=== PATIENT | male | born 1995 ===

== ENCOUNTER 2020-12-06 14:44 | Emergency (ER) | payer OTHER, SELFPAY ==
[2020-12-06 15:12] VITALS: BP 138/53; PULSE 112; RESP 16; TEMP 38.1; O2SAT 97; BMI 29.5
--- NOTE | 2020-12-06 15:17 | DI.RAD.S_ITS ---
PROCEDURE: XR CHEST 2V INDICATIONS: crackles in chest TECHNIQUE: 2 views of the chest were acquired. COMPARISON: None. FINDINGS: Surgical changes and devices: None. Lungs and pleura: Patchy bibasilar infiltrates. No pleural effusions or pneumothorax. Mediastinum: Mediastinal contours are normal. Heart size is normal. Bones and chest wall: No suspicious bony abnormalities. Soft tissues appear unremarkable. IMPRESSION: Patchy bibasilar pneumonia. Dictated by: Navid Bethea M.D. on 12/06/2020 at 15:47 Approved by: Navid Bethea M.D. on 12/06/2020 at 15:48
[2020-12-06 17:33] VITALS: BP 124/72; PULSE 102; RESP 28; TEMP 38.2; O2SAT 96
[2020-12-06] MEDS: ONDANSETRON 4 MG/2 ML INJ IV (17:48)
[2020-12-06] MEDS: KETOROLAC 30 MG/ML VIAL 15 MG IV (17:48)
[2020-12-06] MEDS: SODIUM CHLORIDE 0.9% 1,000 ML 1000 ML IV (17:48)
[2020-12-06 17:50] LABS: Add Manual Diff / Slide Review NO; Basophils Absolute Auto 0 /uL (0-100); Basophils Percent Auto 0.2 % (0-2); Eosinophils Absolute Auto 0 /uL (0-450); Hematocrit 47.3 % (41-53); Hemoglobin 16.4 g/dL (13.5-17.5); Lymphocytes Absolute Auto 500 /uL (1100-4500); Lymphocytes Percent Auto 14.4 % (25-40); Mean Corpuscular HGB Conc 34.7 % (30-36); Mean Corpuscular Hemoglobin 29.2 PG (26-34); Mean Corpuscular Volume 84.2 fL (80-100); Monocytes Absolute Auto 200 /uL (0-900); Neutrophils Absolute Auto 3000 /uL (1500-7000); Neutrophils Percent Auto 79.4 % (50-75); Platelet Count 122 X10^3/uL (150-400); Red Blood Cell Count 5.61 X10^6/uL (4.5-5.9); Red Cell Distribution Width 12.7 % (11.6-14.8); White Blood Cell Count 3.7 X10^3/uL (4.5-11.0)
[2020-12-06 18:00] LABS: Alanine Aminotransferase 45 IU/L (<50); Albumin 4.8 g/dL (3.5-5.0); Albumin Globulin Ratio 1.5 (1.0-2.8); Alkaline Phosphatase 61 U/L (38-126); Aspartate Aminotransferase 42 IU/L (17-59); BUN Creatinine Ratio 13.7 (6-22); Bilirubin Total 0.5 mg/dL (0.2-1.3); Blood Urea Nitrogen 14 mg/dL (9-20); C-Reactive Protein Quant 1.7 mg/dL (<1.0); Calcium 9.3 mg/dL (8.4-10.2); Carbon Dioxide 24 mmol/L (22-32); Chloride 105 mmol/L (98-107); Creatine Kinase 91 U/L (55-170); Estimated Glomerular Filt Rate > 60.0 mL/min (>60); Globulin 3.2 g/dL (1.7-4.1); Glucose 102 mg/dL (70-100); HEMOLYSIS < 15 (0-50); Lactate Dehydrogenase 618 U/L (313-618); Potassium 3.9 mmol/L (3.4-5.1); Sodium 140 mmol/L (137-145)
[2020-12-06 18:01] LABS: COVID19 -Nasal RAPID POSITIVE (Negative)
[2020-12-06 18:09] LABS: NT-proBNP (BNP-Adult 18+) 23 pg/mL (<125); Troponin I < 0.012 ng/mL (0.01-0.034)
[2020-12-06 18:14] LABS: Procalcitonin 0.24 ng/mL (<0.5)
[2020-12-06 18:18] VITALS: PULSE 94; RESP 32; O2SAT 92
[2020-12-06 18:30] VITALS: BP 111/58; PULSE 89; RESP 28; O2SAT 93
[2020-12-06 18:36] LABS: Adenovirus Not Detected (Not Detect); B. parapertussis Not Detected (Not Detecte); Bordetella pertussis Not Detected (Not Detecte); Chlamydophila pneumoniae Not Detected (Not Detect); Coronavirus 229E Not Detected (Not Detect); Coronavirus HKU1 Not Detected (Not Detect); Coronavirus NL 63 Not Detected (Not Detect); Coronavirus OC43 Not Detected (Not Detect); Human Metapneumovirus Not Detected (Not Detect); Human Rhinovirus/Enterovirus Not Detected (Not Detect); Influenza A Not Detected (Not Detect); Influenza B Not Detected (Not Detect); Mycoplasma pneumoniae Not Detected (Not Detect); Parainfluenza Virus 1 Not Detected (Not Detect); Parainfluenza Virus 2 Not Detected (Not Detect); Parainfluenza Virus 3 Not Detected (Not Detect); Parainfluenza Virus 4 Not Detected (Not Detect); Respiratory Syncytial Virus Not Detected (Not Detect); SARS- CoV-2 Detected (Not Detecte)
--- NOTE | 2020-12-06 18:51 | ED_ITS ---
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 He states that at the end of last week he started to not feel well but was not until the past 24 hours when his symptoms worsened. He has not been vaccinated against COVID-19. Related Data Allergies Allergy/AdvReac Type Severity Reaction Status Date / Time No Known Drug Allergies Allergy Verified 12/06/20 15:12 Review of Systems Constitutional Constitutional: Reports fatigue, Reports fever(s) and Reports malaise Eyes Eyes: Reports system reviewed and no additional complaints, except as documented Cardiovascular Cardiovascular: Reports system reviewed and no additional complaints, except as documented and Reports dyspnea Respiratory Respiratory: Reports cough and Reports dyspnea Gastrointestinal Gastrointestinal: Reports system reviewed and no additional complaints, except as documented and Reports nausea Genitourinary Genitourinary: Reports system reviewed and no additional complaints, except as documented Musculoskeletal Musculoskeletal: Reports system reviewed and no additional complaints, except as documented Integumentary/Breasts Skin/Breast: Denies rash Neurologic Neurologic: Reports system reviewed and no additional complaints, except as documented Psychiatric Psychiatric: Reports system reviewed and no additional complaints, except as documented Endocrine Endocrine: Reports fatigue Hematologic/Lymphatic On Anticoagulants: No Allergic/Immunologic Allergic/Immunologic: Reports system reviewed and no additional complaints, except as documented Patient History Medical History Healthy adult Social History Smoking Status: Unknown if ever smoked Smoking Status: Unknown if ever smoked alcohol intake frequency: holidays/special occasions only Substance Use Type: does not use Exam Initial Vital Signs Initial Vital Signs: Vital Signs Temperature 100.5 F H 12/06/20 15:12 Pulse Rate 112 H 12/06/20 15:12 Respiratory Rate 16 12/06/20 15:12 Blood Pressure 138/53 L 12/06/20 15:12 Pulse Oximetry 97 12/06/20 15:12 Const General: cooperative, healthy appearing and comfortable HENMT Head: normal to inspection and normocephalic Eyes General: appearance normal, both eyes and all related structures Neck Neck: normal visual inspection Chest Chest: normal inspection of the chest Resp Effort & Inspection: normal respiratory effort Auscultation: clear to auscultation bilaterally Cardio Rate: regular rate Rhythm: regular rhythm GI Inspection: normal to inspection Skin General: no rashes or lesions noted Neuro General: patient alert, patient awake, patient oriented x3 and moves all extremities Extrem General: normal to inspection Psych Appearance: grossly normal Course Orders Ordered: Discontinued Medications Sodium Chloride (Normal Saline 0.9%) 1,000 mls @ 1,000 mls/hr IV BOLUS ONE Stop: 12/06/20 18:41 Last Infusion: 12/06/20 19:04 Dose: 0 mls/hr Documented by: Admin: 12/06/20 17:48 Dose: 1,000 mls/hr Documented by: BOSTON Ketorolac Tromethamine (Ketorolac 30 Mg/Ml Vial) 15 mg IV NOW ONE Stop: 12/06/20 17:43 Last Admin: 12/06/20 17:48 Dose: 15 mg Documented by: BOSTON Ondansetron HCl (Ondansetron 4 Mg/2 Ml Inj) 4 mg IV NOW ONE Stop: 12/06/20 17:43 Last Admin: 12/06/20 17:48 Dose: 4 mg Documented by: BOSTON Vital Signs Vital signs: Vital Signs - 8 hr 12/06/20 15:12 12/06/20 17:33 12/06/20 18:18 Temperature 100.5 F H 100.8 F H Pulse Rate 112 H 102 H 94 H Respiratory Rate 16 28 H 32 H Blood Pressure 138/53 L 124/72 Pulse Oximetry 97 96 92 12/06/20 18:30 Temperature Pulse Rate 89 Respiratory Rate 28 H Blood Pressure 111/58 L Pulse Oximetry 93 Medical Decision Making Medical Records Medical records reviewed: Yes I reviewed the patient's medical records. Lab Data Lab results reviewed: Yes I reviewed the patient's lab results. Result diagrams: 12/06/20 17:26 12/06/20 17:26 Labs: Lab Results 12/06/20 12/06/20 12/06/20 Range/Units 17:26 17:26 17:26 WBC 3.7 L (4.5-11.0) X10^3/uL RBC 5.61 (4.5-5.9) X10^6/uL Hgb 16.4 (13.5-17.5) g/dL Hct 47.3 (41-53) % MCV 84.2 (80-100) fL MCH 29.2 (26-34) PG MCHC 34.7 (30-36) % RDW 12.7 (11.6-14.8) % Plt Count 122 L (150-400) X10^3/uL Neut % (Auto) 79.4 H (50-75) % Lymph % (Auto) 14.4 L (25-40) % Ida % (Auto) 6.0 (3-14) % Eos % (Auto) 0.0 L (2-4) % Baso % (Auto) 0.2 (0-2) % Neut # (Auto) 3000 (2540-3206) /uL Lymph # (Auto) 500 L (2320-5817) /uL Ida # (Auto) 200 (0-900) /uL Eos # (Auto) 0 (0-450) /uL Baso # (Auto) 0 (0-100) /uL Sodium 140 (137-145) mmol/L Potassium 3.9 (3.4-5.1) mmol/L Chloride 105 (98-107) mmol/L Carbon Dioxide 24 (22-32) mmol/L BUN 14 (9-20) mg/dL Creatinine 1.02 (0.66-1.25) mg/dL Estimated GFR > 60.0 (>60) mL/min BUN/Creatinine Ratio 13.7 (6-22) Glucose 102 H (70-100) mg/dL Lactate (0.7-2.1) mmol/L Calcium 9.3 (8.4-10.2) mg/dL Total Bilirubin 0.5 (0.2-1.3) mg/dL AST 42 (17-59) IU/L ALT 45 (<50) IU/L Alkaline Phosphatase 61 (38-126) U/L Lactate Dehydrogenase 618 (313-618) U/L Total Creatine Kinase 91 (55-170) U/L CK-MB (CK-2) TNP CK-MB (CK-2) Rel Index TNP Troponin I < 0.012 (0.01-0.034) ng/mL C-Reactive Protein 1.7 H (<1.0) mg/dL NT-Pro-B Natriuret Pep 23 (<125) pg/mL Total Protein 8.0 (6.3-8.2) g/dL Albumin 4.8 (3.5-5.0) g/dL Globulin 3.2 (1.7-4.1) g/dL Albumin/Globulin Ratio 1.5 (1.0-2.8) Procalcitonin 0.24 (<0.5) ng/mL Chlamy pneumoniae PCR (Not Detect) Adenovirus (PCR) (Not Detect) B. pertussis DNA (PCR) (Not Detecte) B.parapertussis DNA PCR (Not Detecte) Coronavirus OC43 (PCR) (Not Detect) Coronavirus HKU1 (PCR) (Not Detect) Coronavirus 229E (PCR) (Not Detect) SARS-CoV-2 (PCR) (Not Detecte) Coronavirus NL63 (PCR) (Not Detect) Human Metapneumovir PCR (Not Detect) Influenza Type A (PCR) (Not Detect) Influenza Type B (PCR) (Not Detect) M. pneumoniae (PCR) (Not Detect) Parainfluenza 1 (PCR) (Not Detect) Parainfluenza 2 (PCR) (Not Detect) Parainfluenza 3 (PCR) (Not Detect) Parainfluenza 4 (PCR) (Not Detect) RSV (PCR) (Not Detect) Entero/Rhino (PCR) (Not Detect) 12/06/20 12/06/20 12/06/20 Range/Units 17:26 17:26 17:39 WBC (4.5-11.0) X10^3/uL RBC (4.5-5.9) X10^6/uL Hgb (13.5-17.5) g/dL Hct (41-53) % MCV (80-100) fL MCH (26-34) PG MCHC (30-36) % RDW (11.6-14.8) % Plt Count (150-400) X10^3/uL Neut % (Auto) (50-75) % Lymph % (Auto) (25-40) % Ida % (Auto) (3-14) % Eos % (Auto) (2-4) % Baso % (Auto) (0-2) % Neut # (Auto) (7010-5560) /uL Lymph # (Auto) (1990-7938) /uL Ida # (Auto) (0-900) /uL Eos # (Auto) (0-450) /uL Baso # (Auto) (0-100) /uL Sodium (137-145) mmol/L Potassium (3.4-5.1) mmol/L Chloride (98-107) mmol/L Carbon Dioxide (22-32) mmol/L BUN (9-20) mg/dL Creatinine (0.66-1.25) mg/dL Estimated GFR (>60) mL/min BUN/Creatinine Ratio (6-22) Glucose (70-100) mg/dL Lactate 1.0 (0.7-2.1) mmol/L Calcium (8.4-10.2) mg/dL Total Bilirubin (0.2-1.3) mg/dL AST (17-59) IU/L ALT (<50) IU/L Alkaline Phosphatase (38-126) U/L Lactate Dehydrogenase (313-618) U/L Total Creatine Kinase (55-170) U/L CK-MB (CK-2) CK-MB (CK-2) Rel Index Troponin I (0.01-0.034) ng/mL C-Reactive Protein (<1.0) mg/dL NT-Pro-B Natriuret Pep (<125) pg/mL Total Protein (6.3-8.2) g/dL Albumin (3.5-5.0) g/dL Globulin (1.7-4.1) g/dL Albumin/Globulin Ratio (1.0-2.8) Procalcitonin (<0.5) ng/mL Chlamy pneumoniae PCR Not detected (Not Detect) Adenovirus (PCR) Not detected (Not Detect) B. pertussis DNA (PCR) Not detected (Not Detecte) B.parapertussis DNA PCR Not detected (Not Detecte) Coronavirus OC43 (PCR) Not detected (Not Detect) Coronavirus HKU1 (PCR) Not detected (Not Detect) Coronavirus 229E (PCR) Not detected (Not Detect) SARS-CoV-2 (PCR) Detected H Positive H (Not Detecte) Coronavirus NL63 (PCR) Not detected (Not Detect) Human Metapneumovir PCR Not detected (Not Detect) Influenza Type A (PCR) Not detected (Not Detect) Influenza Type B (PCR) Not detected (Not Detect) M. pneumoniae (PCR) Not detected (Not Detect) Parainfluenza 1 (PCR) Not detected (Not Detect) Parainfluenza 2 (PCR) Not detected (Not Detect) Parainfluenza 3 (PCR) Not detected (Not Detect) Parainfluenza 4 (PCR) Not detected (Not Detect) RSV (PCR) Not detected (Not Detect) Entero/Rhino (PCR) Not detected (Not Detect) Imaging Data Chest x-ray: Radiologist's Impression: [address] [id number] ReportSigned Patient: Von LoomisMR#: [id number]: [id number]:[id number]/Sex: 25 / MDate of Service: 12/06/20Loc: EDAccession Number: [id number] Procedure: XR chest 2V Ordering Provider: Adela Ledbetter MD PROCEDURE: XR CHEST 2V INDICATIONS: crackles in chest TECHNIQUE: 2 views of the chest were acquired. COMPARISON: None. FINDINGS: Surgical changes and devices: None. Lungs and pleura: Patchy bibasilar infiltrates. No pleural effusions or pneumothorax. Mediastinum: Mediastinal contours are normal. Heart size is normal. Bones and chest wall: No suspicious bony abnormalities. Soft tissues appear unremarkable. IMPRESSION: Patchy bibasilar pneumonia. Dictated by: Navid Bethea M.D. on 12/06/2020 at 15:47 Approved by: Navid Bethea M.D. on 12/06/2020 at 15:48 ECG Data Attestation: I personally reviewed and interpreted this ECG as follows: Interpretation: Sinus rhythm Ventricular rate 91 Normal axis Normal QRS Normal QTC Nonspecific ST T wave changes MDM Narrative Medical decision making narrative: Patient has not been immunized against COVID- 19. He states that he has been too busy for this. His 2 roommates have recently been diagnosed with COVID. His COVID is positive today. Chest x-ray shows bibasilar pneumonia. He states that he feels much better after the IV fluids. He ambulated to the room and oxygen saturation stayed above 92%. He is a clear lung exam. We did discuss options to include being admitted to the hospital for observation versus being discharged home and returning if the symptoms worsen. He stated that he would like to be discharged home and will come back if he starts to have shortness of breath. He was given restrictions and also quarantine instructions. He expressed understanding and agreement. Discharge Plan Departure Patient Disposition: Home Clinical Impression: COVID-19 Instructions: DI for COVID-19 (Suspected or Confirmed ) Activity Restrictions/Additional Instructions: You were positive today for COVID-19. I recommend that you tell your command of this diagnosis is stable into no. Urine out to quarantine yourself for the next 10 days and also until you have been symptom-free for 24 hours. Be sure to increase your fluid intake. You can take Tylenol for any fevers. Return to the emergency department for any new or worsening symptoms.
[2020-12-06 19:05] VITALS: TEMP 37.8
== END 2020-12-06 19:13 | disposition home or self-care (01) ==
PROVIDERS: Emergency Medicine; Emergency Provider Emergency Medicine
DX: U07.1 COVID-19 (principal); R50.9 Fever, unspecified; R06.02 Shortness of breath
CPT/HCPCS: 36415; 71046; 80053; 82550; 83605; 83615; 83880; 84145; 84484; 85025; 86140; 87040; 87633; 87635; 93005; 93010; 96361; 96374; 96375; 99284; C9803; J1885; J2405